=== PATIENT | male | born 1945 | race Two or more races ===

== ENCOUNTER → 2016-09-06 | Outpatient (CLI) | payer OTHER ==
[~2016-09-06] MED LIST: CYCL1TAB18 PO; FLUR15CA PO; HYDR-531 PO; IBU800T PO; OMEP20CA5 PO; SILD100T57 PO; WARF5TAB71 PO
== END | disposition home or self-care (01) ==
LOC: LAB 07:49
PROVIDERS: ATTEND Internal Medicine
DX: Z98.890 Other specified postprocedural states (principal)
CPT/HCPCS: 36415; 82565; 84520

== ENCOUNTER → 2016-10-19 | Outpatient (CLI) | payer OTHER ==
[2016-10-19 10:36] LABS: Albumin 4.1 g/dL (3.4-5.0); BUN/Creatinine Ratio 16.2; Basophils # (auto) 0.1 uL; Basophils % (auto) 1.2 % (0.0-2.0); Bilirubin, Direct 0.2 mg/dL (0-0.2); Bilirubin, Total 0.9 mg/dL (0.2-1.0); Calcium 9.2 mg/dL (8.5-10.1); Eosinophils # (auto) 0.2 uL; Eosinophils % (auto) 3.2 % (0.0-7.0); Hematocrit 48.4 % (41.0-53.0); Hemoglobin 16.1 g/dL (13.5-17.5); Lymphocytes # (auto) 1.2 uL; Lymphocytes % (auto) 21.6 % (10.0-50.0); Mean Corpuscular Hemoglobin 30.5 pg (28.0-32.0); Mean Corpuscular Hgb Conc. 33.3 g/dL (32.0-36.0); Mean Corpuscular Volume 91.6 fL (80.0-100.0); Mean Platelet Volume 10.3 fL (7.4-10.4); Monocytes # (auto) 0.5 uL; Monocytes % (auto) 8.7 % (0.0-12.0); Neutrophils # (auto) 3.5 uL; Neutrophils % (auto) 65.3 % (37.0-80.0); Platelet Count (auto) 191 10^3/uL (140-450); Potassium 4.7 mmol/L (3.5-5.1); Red Cell Distribution Width 14.5 % (11.6-16.0); White Blood Cell 5.4 10^3/uL (4.4-10.8)
[2016-10-19 10:42] LABS: Urine Bilirubin Negative (Negative); Urine Blood Negative /uL (Negative); Urine Color Yellow (Yellow); Urine Glucose Normal (Normal); Urine Ketone Negative (Negative); Urine Nitrite Negative (Negative); Urine Urobilinogen Normal (Negative); Urine pH 5.5 (5.0-8.0)
== END | disposition home or self-care (01) ==
LOC: LAB 09:57
PROVIDERS: ATTEND Internal Medicine Cardiovascular Disease
DX: D64.9 Anemia, unspecified (principal); I10 Essential (primary) hypertension; E78.00 Pure hypercholesterolemia, unspecified; E03.9 Hypothyroidism, unspecified; E55.9 Vitamin D deficiency, unspecified; R53.81 Other malaise; K74.1 Hepatic sclerosis; E11.00 Type 2 diabetes mellitus with hyperosmolarity without nonketotic hyperglycemic-hyperosmolar coma (NKHHC)
CPT/HCPCS: 36415; 80048; 80061; 80076; 81003; 82306; 83036; 84153; 84403; 84443; 85025

== ENCOUNTER → 2016-11-13 | Outpatient (CLI) | payer OTHER | END | disposition home or self-care (01) | LOC: Rad HDHVI 14:21 | PROVIDERS: ATTEND Internal Medicine Cardiovascular Disease | DX: Z01.810 Encounter for preprocedural cardiovascular examination (principal) | CPT/HCPCS: 93306 ==

== ENCOUNTER → 2016-12-17 | Outpatient (CLI) | payer OTHER ==
[~2016-12-17] VITALS: Ht 170.2 cm; Wt 86.6 kg
[~2016-12-17] MED LIST changes: +ADENOSINE 73 MG in GIVE UN-DILUTED 0 ML IV ONE; +ADENOSINE 90 MG/30 ML INJ IV ONE; -IBU800T PO; +IBUP800T24 PO; -OMEP20CA5 PO; +OMEP20CA74 PO
== END | disposition home or self-care (01) ==
LOC: Rad HDHVI 13:45
PROVIDERS: ATTEND Internal Medicine Cardiovascular Disease
DX: Z01.818 Encounter for other preprocedural examination (principal); I10 Essential (primary) hypertension; E78.00 Pure hypercholesterolemia, unspecified; Z82.49 Family history of ischemic heart disease and other diseases of the circulatory system
CPT/HCPCS: 78452; 93005; 96374; 96375; A9500; J0153

== ENCOUNTER 2017-02-20 06:08 | Day surgery (SDC) | payer OTHER ==
[2017-02-18 16:29] LABS: Basophils # (auto) 0.1 uL; Basophils % (auto) 0.9 % (0.0-2.0); CONDITION Y; Eosinophils # (auto) 0.2 uL; Eosinophils % (auto) 2.5 % (0.0-7.0); Hematocrit 44.5 % (41.0-53.0); Hemoglobin 15.2 g/dL (13.5-17.5); Lymphocytes # (auto) 1.3 uL; Lymphocytes % (auto) 19.5 % (10.0-50.0); Mean Corpuscular Hemoglobin 31.7 pg (28.0-32.0); Mean Corpuscular Hgb Conc. 34.2 g/dL (32.0-36.0); Mean Corpuscular Volume 92.9 fL (80.0-100.0); Mean Platelet Volume 10.6 fL (7.4-10.4); Monocytes # (auto) 0.6 uL; Monocytes % (auto) 8.7 % (0.0-12.0); Neutrophils # (auto) 4.5 uL; Neutrophils % (auto) 68.4 % (37.0-80.0); Platelet Count (auto) 161 10^3/uL (140-450); Red Cell Distribution Width 13.8 % (11.6-16.0); White Blood Cell 6.5 10^3/uL (4.4-10.8)
[2017-02-18 16:31] LABS: Urine Bilirubin Negative (Negative); Urine Blood Negative /uL (Negative); Urine Color Yellow (Yellow); Urine Glucose Normal (Normal); Urine Ketone Negative (Negative); Urine Nitrite Negative (Negative); Urine RBC 1 /hpf (0 - 3); Urine Squamous Epithelial Cell FEW /hpf (<5); Urine Urobilinogen Normal (Negative); Urine pH 5.5 (5.0-8.0)
[2017-02-18 16:35] LABS: Albumin 3.7 g/dL (3.4-5.0); BUN/Creatinine Ratio 12.6; Bilirubin, Total 0.6 mg/dL (0.2-1.0); Calcium 8.4 mg/dL (8.5-10.1); Potassium 3.6 mmol/L (3.5-5.1); Total Protein 7.3 g/dL (6.4-8.2)
[2017-02-18 16:36] LABS: INR 0.98 (0.9-1.15); Partial Thromboplastin Time 28.9 sec (22.64-33.71); Prothrombin Time 10.7 sec (9.37-12.3)
[~2017-02-20] VITALS: Ht 170.2 cm; Wt 88.9 kg
[~2017-02-20 06:08] MED LIST changes: -ADENOSINE 73 MG in GIVE UN-DILUTED 0 ML IV ONE; -ADENOSINE 90 MG/30 ML INJ IV ONE; -CYCL1TAB18 PO; -SILD100T57 PO; -WARF5TAB71 PO
[2017-02-20] MEDS ORDERED: ceFOXitin 2GM/100ML D5W 100 ML IV ONE (06:44)
[2017-02-20] MEDS ORDERED: HEPARIN SODIUM (PORCINE) 5000 UNITS/ML 1ML VIAL ONE (06:45)
[2017-02-20] MEDS ORDERED: fentaNYL CITRATE 100 MCG/2 ML VL ONE (07:30)
[2017-02-20] MEDS ORDERED: PROPOFOL 10 MG/ML 20 ML IV ONE (07:30)
[2017-02-20] MEDS ORDERED: LIDOCAINE W/ EPINEPHRINE 1 % INJ 30ML ONE (07:50)
[2017-02-20] MEDS ORDERED: LIDOCAINE 1% HCL (LOCAL ANESTH.) INJ 20ML MDV ONE (07:50)
[2017-02-20] MEDS ORDERED: BUPIVACAINE HCL 50 ML ONE (07:50)
[2017-02-20] MEDS ORDERED: ePHEDrine SULFATE 50 MG/ML AMP IV PRN (09:15)
[2017-02-20] MEDS ORDERED: ONDANSETRON HCL 4 MG/2 ML VIAL IV ONE (09:15)
[2017-02-20] MEDS ORDERED: hydrALAZINE HCL 20 MG/ML VL IV PRN (09:15)
[2017-02-20] MEDS: HYDROmorphone HCL 2 MG/ML VL IV PRN ×2 (09:30→09:40)
[2017-02-20 10:10] VITALS: BP 114/68
== END 2017-02-20 10:15 | disposition home or self-care (01) ==
LOC: SUR 06:08
DX: K42.9 Umbilical hernia without obstruction or gangrene (principal); Z90.49 Acquired absence of other specified parts of digestive tract; K66.0 Peritoneal adhesions (postprocedural) (postinfection)
CPT/HCPCS: 36415; 44970; 49652; 80053; 81001; 85025; 85610; 85730; 86850; 86900; 86901; J0694; J1170; J1644; J2001; J2704; J3010; J3490; J7030

== ENCOUNTER → 2017-05-27 | Outpatient (CLI) | payer OTHER ==
[2017-05-27 09:28] LABS: Basophils # (auto) 0.1 uL; Basophils % (auto) 2.5 % (0.0-2.0); Eosinophils # (auto) 0.2 uL; Eosinophils % (auto) 3.3 % (0.0-7.0); Hematocrit 44.5 % (41.0-53.0); Hemoglobin 15.4 g/dL (13.5-17.5); Lymphocytes # (auto) 1.3 uL; Lymphocytes % (auto) 27.1 % (10.0-50.0); Mean Corpuscular Hemoglobin 32.4 pg (28.0-32.0); Mean Corpuscular Hgb Conc. 34.7 g/dL (32.0-36.0); Mean Corpuscular Volume 93.5 fL (80.0-100.0); Mean Platelet Volume 9.6 fL (6.9-10.8); Monocytes # (auto) 0.4 uL; Monocytes % (auto) 9.4 % (0.0-12.0); Neutrophils # (auto) 2.7 uL; Neutrophils % (auto) 57.7 % (37.0-80.0); Nucleated Red Blood Cells % 0.1 %; Platelet Count (auto) 139 10^3/uL (140-450); Red Cell Distribution Width 13.2 % (11.8-14.3); White Blood Cell 4.8 10^3/uL (4.4-10.8)
[2017-05-27 09:38] LABS: INR 1.02 (0.9-1.15); Prothrombin Time 11.1 sec (9.37-12.3)
[2017-05-27 09:56] LABS: Albumin 3.8 g/dL (3.4-5.0); BUN/Creatinine Ratio 16.2; Bilirubin, Total 0.8 mg/dL (0.2-1.0); Calcium 8.2 mg/dL (8.5-10.1); Potassium 3.8 mmol/L (3.5-5.1); Total Protein 7.4 g/dL (6.4-8.2)
== END | disposition home or self-care (01) ==
LOC: LAB 09:00
DX: D49.0 Neoplasm of unspecified behavior of digestive system (principal); Z79.01 Long term (current) use of anticoagulants
CPT/HCPCS: 36415; 80053; 85025; 85610

== ENCOUNTER → 2017-08-30 | Outpatient (CLI) | payer OTHER ==
[2017-08-30 10:03] LABS: Basophils # (auto) 0.1 uL; Basophils % (auto) 2.5 % (0.0-2.0); Eosinophils # (auto) 0.4 uL; Eosinophils % (auto) 7.8 % (0.0-7.0); Hematocrit 40.8 % (41.0-53.0); Hemoglobin 13.7 g/dL (13.5-17.5); Lymphocytes # (auto) 1.3 uL; Lymphocytes % (auto) 26.3 % (10.0-50.0); Mean Corpuscular Hemoglobin 31.1 pg (28.0-32.0); Mean Corpuscular Hgb Conc. 33.6 g/dL (32.0-36.0); Mean Corpuscular Volume 92.6 fL (80.0-100.0); Monocytes # (auto) 0.6 uL; Monocytes % (auto) 11.1 % (0.0-12.0); Neutrophils # (auto) 2.6 uL; Neutrophils % (auto) 52.3 % (37.0-80.0); Nucleated Red Blood Cells % 0.3 %; Platelet Count (auto) 142 10^3/uL (140-450); Red Cell Distribution Width 15.9 % (11.8-14.3)
[2017-08-30 14:17] LABS: Potassium 3.9 mmol/L (3.5-5.1)
[2017-08-30 14:18] LABS: BUN/Creatinine Ratio 15.5
[2017-08-30 14:19] LABS: Albumin 3.6 g/dL (3.4-5.0); Bilirubin, Total 0.4 mg/dL (0.2-1.0); Calcium 8.9 mg/dL (8.5-10.1); Total Protein 7.5 g/dL (6.4-8.2)
== END | disposition home or self-care (01) ==
LOC: LAB 09:06
PROVIDERS: ATTEND Physician Assistant
DX: I10 Essential (primary) hypertension (principal); E78.4 Other hyperlipidemia; J43.9 Emphysema, unspecified; N21.9 Calculus of lower urinary tract, unspecified; Z86.718 Personal history of other venous thrombosis and embolism
CPT/HCPCS: 36415; 80053; 80061; 84403; 85025

== ENCOUNTER → 2017-09-16 | Outpatient (CLI) | payer OTHER | END | disposition home or self-care (01) | LOC: LAB 09:24 | PROVIDERS: ATTEND Physician Assistant | DX: E34.9 Endocrine disorder, unspecified (principal); N50.9 Disorder of male genital organs, unspecified | CPT/HCPCS: 36415; 84403 ==

== ENCOUNTER → 2017-10-18 | Outpatient (CLI) | payer OTHER ==
[2017-10-18 10:04] LABS: Albumin 3.6 g/dL (3.4-5.0); BUN/Creatinine Ratio 16.1; Bilirubin, Total 0.5 mg/dL (0.2-1.0); Calcium 8.3 mg/dL (8.5-10.1); Potassium 3.9 mmol/L (3.5-5.1); Total Protein 7.2 g/dL (6.4-8.2)
== END | disposition home or self-care (01) ==
LOC: LAB 08:55
PROVIDERS: ATTEND Physician Assistant
DX: E34.9 Endocrine disorder, unspecified (principal); E78.4 Other hyperlipidemia; I10 Essential (primary) hypertension
CPT/HCPCS: 36415; 80053; 80061

== ENCOUNTER → 2018-02-12 | Outpatient (CLI) | payer OTHER | END | disposition home or self-care (01) | LOC: LAB 07:43 | PROVIDERS: ATTEND Physician Assistant | DX: Z01.818 Encounter for other preprocedural examination (principal); I10 Essential (primary) hypertension; E03.9 Hypothyroidism, unspecified; K21.9 Gastro-esophageal reflux disease without esophagitis | CPT/HCPCS: 36415; 82565; 84520 ==

== ENCOUNTER 2018-06-23 11:01 | Emergency (ER) | payer OTHER ==
[~2018-06-23] VITALS: Ht 172.7 cm; Wt 88.0 kg
[2018-06-23 11:42] VITALS: BP 138/90
[2018-06-23] MEDS ORDERED: METHOCARBAMOL 500 MG TAB PO ONE (12:15)
[2018-06-23] MEDS ORDERED: methylPREDNISolone SOD SUCC 125 MG/2 ML VL IM ONE (12:15)
== END 2018-06-23 13:01 | disposition home or self-care (01) ==
LOC: ER 11:01
DX: S16.1XXA Strain of muscle, fascia and tendon at neck level, initial encounter (principal); X58.XXXA Exposure to other specified factors, initial encounter; Y93.89 Activity, other specified; Y99.8 Other external cause status; Y92.89 Other specified places as the place of occurrence of the external cause
CPT/HCPCS: 72040; 96372; 99283; J2930

== ENCOUNTER → 2018-09-11 | Outpatient (CLI) | payer OTHER | END | disposition home or self-care (01) | LOC: XYW 09:07 | PROVIDERS: ATTEND Orthopaedic Surgery Adult Reconstructive Orthopaedic Surgery | DX: Z01.818 Encounter for other preprocedural examination (principal); I34.0 Nonrheumatic mitral (valve) insufficiency; G56.02 Carpal tunnel syndrome, left upper limb | CPT/HCPCS: 93306 ==

== ENCOUNTER → 2018-09-18 | Outpatient (CLI) | payer OTHER | END | disposition home or self-care (01) | LOC: LAB 08:45 | PROVIDERS: ATTEND Physician Assistant | DX: C18.1 Malignant neoplasm of appendix (principal) | CPT/HCPCS: 36415; 82565; 84520 ==

== ENCOUNTER → 2018-10-13 | Day surgery (SDC) | payer OTHER ==
[2018-10-06 09:42] LABS: Basophils # (auto) 0.1 uL; Basophils % (auto) 2.5 % (0.0-2.0); Eosinophils # (auto) 0.1 uL; Hematocrit 47.4 % (41.0-53.0); Hemoglobin 16.3 g/dL (13.5-17.5); Lymphocytes % (auto) 23.4 % (10.0-50.0); Mean Corpuscular Hemoglobin 32.2 pg (28.0-32.0); Mean Corpuscular Hgb Conc. 34.5 g/dL (32.0-36.0); Mean Corpuscular Volume 93.4 fL (80.0-100.0); Monocytes # (auto) 0.4 uL; Neutrophils # (auto) 2.6 uL; Neutrophils % (auto) 61.1 % (37.0-80.0); Nucleated Red Blood Cells % 0.2 %; Platelet Count (auto) 130 10^3/uL (140-450); Red Blood Cells 5.07 10^6/uL (4.5-5.90); Red Cell Distribution Width 13.9 % (11.8-14.3); White Blood Cell 4.3 10^3/uL (4.4-10.8)
[2018-10-06 09:46] LABS: Urine Bacteria NONE SEEN /hpf (None Seen); Urine Blood Negative /uL (Negative); Urine Specific Gravity 1.026 (1.001-1.035); Urine WBC <1 /hpf (0 - 3)
[2018-10-06 10:00] LABS: INR 1.03 (0.9-1.15)
[2018-10-06 10:03] LABS: Albumin 3.6 g/dL (3.4-5.0); BUN/Creatinine Ratio 13.3; Calcium 8.1 mg/dL (8.5-10.1); Potassium 3.8 mmol/L (3.5-5.1)
[2018-10-06 10:08] LABS: Bilirubin, Total 0.9 mg/dL (0.2-1.0); Total Protein 7.1 g/dL (6.4-8.2)
[~2018-10-13] VITALS: Ht 170.2 cm; Wt 86.2 kg
[~2018-10-13] MED LIST changes: +ASPI81TA27 PO; +ATOR10TA52 PO; +BUPIVACAINE 0.25% INJ 50ML VIAL ONE; +DICL1.3D21 TOP; +DexAMETHasone SOD PHOS 10MG/1ML VIAL INJ ONE; +HYDROmorphone HCL 2 MG/ML VL IV PRN; +KETOROLAC TROMETH 30 MG/ML 1ML VIAL IV ONE; +KETOROLAC TROMETH 30 MG/ML 1ML VIAL ONE; +LABETALOL HCL 5 MG/ML 4ML SYRINGE IV PRN; +LIDOCAINE 1% HCL (LOCAL ANESTH.) INJ 20ML MDV ONE; +MEPERIDINE HCL (50 MG/ML) 1 ML VIAL ONE; +MIDAZOLAM HCL 1MG/1ML-2 ML VIAL IV PRN; +MIDAZOLAM HCL 1MG/1ML-2 ML VIAL ONE; +MORPHINE SULFATE 4 MG/ML SYR/VIAL IV ONE; +ONDANSETRON HCL 4 MG/2 ML VIAL IV ONE; +PROPOFOL 10 MG/ML 20 ML IV ONE; +TEST1INJ15 IM; +ceFAZolin 1GM/50ML 100 ML IV ONE; +ePHEDrine SULFATE 50 MG/ML AMP IV PRN; +fentaNYL CITRATE 100 MCG/2 ML VL ONE
[2018-10-13 09:44] VITALS: BP 102/67
== END | disposition home or self-care (01) ==
LOC: SUR 06:14
PROVIDERS: ATTEND Orthopaedic Surgery Adult Reconstructive Orthopaedic Surgery
DX: G56.02 Carpal tunnel syndrome, left upper limb (principal); G56.22 Lesion of ulnar nerve, left upper limb; Z79.899 Other long term (current) drug therapy; Z79.82 Long term (current) use of aspirin; K21.9 Gastro-esophageal reflux disease without esophagitis; G89.29 Other chronic pain; E66.9 Obesity, unspecified; Z68.30 Body mass index [BMI] 30.0-30.9, adult
CPT/HCPCS: 29848; 36415; 64718; 80053; 81001; 85025; 85610; 85730; J0690; J1100; J1885; J2001; J2175; J2250; J2704; J3010; J3490

== ENCOUNTER → 2018-10-28 | Outpatient (CLI) | payer OTHER ==
[~2018-10-28] MED LIST changes: -BUPIVACAINE 0.25% INJ 50ML VIAL ONE; -DexAMETHasone SOD PHOS 10MG/1ML VIAL INJ ONE; -HYDROmorphone HCL 2 MG/ML VL IV PRN; -KETOROLAC TROMETH 30 MG/ML 1ML VIAL IV ONE; -KETOROLAC TROMETH 30 MG/ML 1ML VIAL ONE; -LABETALOL HCL 5 MG/ML 4ML SYRINGE IV PRN; -LIDOCAINE 1% HCL (LOCAL ANESTH.) INJ 20ML MDV ONE; -MEPERIDINE HCL (50 MG/ML) 1 ML VIAL ONE; -MIDAZOLAM HCL 1MG/1ML-2 ML VIAL IV PRN; -MIDAZOLAM HCL 1MG/1ML-2 ML VIAL ONE; -MORPHINE SULFATE 4 MG/ML SYR/VIAL IV ONE; -ONDANSETRON HCL 4 MG/2 ML VIAL IV ONE; -PROPOFOL 10 MG/ML 20 ML IV ONE; -ceFAZolin 1GM/50ML 100 ML IV ONE; -ePHEDrine SULFATE 50 MG/ML AMP IV PRN; -fentaNYL CITRATE 100 MCG/2 ML VL ONE
[2018-10-28 09:30] LABS: Basophils # (auto) 0.1 uL; Basophils % (auto) 1.4 % (0.0-2.0); Eosinophils # (auto) 0.2 uL; Hematocrit 49.1 % (41.0-53.0); Hemoglobin 16.7 g/dL (13.5-17.5); Lymphocytes # (auto) 0.6 uL; Lymphocytes % (auto) 15.4 % (10.0-50.0); Mean Corpuscular Hemoglobin 31.8 pg (28.0-32.0); Mean Corpuscular Hgb Conc. 34.1 g/dL (32.0-36.0); Mean Corpuscular Volume 93.2 fL (80.0-100.0); Monocytes # (auto) 0.5 uL; Monocytes % (auto) 12.6 % (0.0-12.0); Neutrophils # (auto) 2.6 uL; Neutrophils % (auto) 66.6 % (37.0-80.0); Nucleated Red Blood Cells % 0.1 %; Platelet Count (auto) 108 10^3/uL (140-450); Red Blood Cells 5.26 10^6/uL (4.5-5.90); Red Cell Distribution Width 13.7 % (11.8-14.3); White Blood Cell 3.9 10^3/uL (4.4-10.8)
[2018-10-28 09:46] LABS: Potassium 3.7 mmol/L (3.5-5.1)
[2018-10-28 09:58] LABS: Albumin 3.7 g/dL (3.4-5.0); BUN/Creatinine Ratio 13.3; Bilirubin, Total 1.3 mg/dL (0.2-1.0); Calcium 8.3 mg/dL (8.5-10.1); Total Protein 7.1 g/dL (6.4-8.2)
== END | disposition home or self-care (01) ==
LOC: LAB 08:19
PROVIDERS: ATTEND Physician Assistant
DX: Z12.5 Encounter for screening for malignant neoplasm of prostate (principal); J44.9 Chronic obstructive pulmonary disease, unspecified; I10 Essential (primary) hypertension; E78.49 Other hyperlipidemia; E34.9 Endocrine disorder, unspecified
CPT/HCPCS: 36415; 80053; 80061; 84153; 84403; 85025

== ENCOUNTER → 2019-02-12 | Outpatient (CLI) | payer OTHER ==
[~2019-02-12] MED LIST changes: +ASPI-404 PO; -ASPI81TA27 PO
[2019-02-12 11:39] LABS: Alcohol, Urine < 3.0 mg/dL (0-5); Amphetamine Screen, Urine NEGATIVE (NEGATIVE); Barbiturate Scree,Urine NEGATIVE (NEGATIVE); Benzodiazephine Screen, Urine NEGATIVE (NEGATIVE); Opiate Scree,Urine NEGATIVE (NEGATIVE)
[2019-02-12 11:46] LABS: Cannabinoid Screen, Urine NEGATIVE (NEGATIVE); Cocaine Screen, Urine NEGATIVE (NEGATIVE); Phencyclidine Screen, Urine NEGATIVE (NEGATIVE)
== END | disposition home or self-care (01) ==
LOC: LAB 11:10
PROVIDERS: ATTEND Physician Assistant
DX: Z02.89 Encounter for other administrative examinations (principal); Z79.818 Long term (current) use of other agents affecting estrogen receptors and estrogen levels
CPT/HCPCS: 80307

== ENCOUNTER → 2019-03-31 | Outpatient (CLI) | payer OTHER ==
[2019-03-31 11:34] LABS: Alcohol, Urine < 3.0 mg/dL (0-5); Amphetamine Screen, Urine NEGATIVE (NEGATIVE); Barbiturate Scree,Urine NEGATIVE (NEGATIVE); Benzodiazephine Screen, Urine NEGATIVE (NEGATIVE); Cannabinoid Screen, Urine NEGATIVE (NEGATIVE); Cocaine Screen, Urine NEGATIVE (NEGATIVE); Opiate Scree,Urine POSITIVE (NEGATIVE); Phencyclidine Screen, Urine NEGATIVE (NEGATIVE)
== END | disposition home or self-care (01) ==
LOC: LAB 09:42
PROVIDERS: ATTEND Physician Assistant
DX: Z79.891 Long term (current) use of opiate analgesic (principal)
CPT/HCPCS: 80307

== ENCOUNTER → 2019-08-10 | Outpatient (CLI) | payer OTHER ==
[2019-08-10 07:47] LABS: Basophils # (auto) 0.1 uL; Basophils % (auto) 1.8 % (0.0-2.0); Eosinophils # (auto) 0.3 uL; Eosinophils % (auto) 6.4 % (0.0-7.0); Hematocrit 42.2 % (41.0-53.0); Hemoglobin 14.9 g/dL (13.5-17.5); Lymphocytes # (auto) 1.1 uL; Lymphocytes % (auto) 23.1 % (10.0-50.0); Mean Corpuscular Hemoglobin 32.7 pg (28.0-32.0); Mean Corpuscular Hgb Conc. 35.4 g/dL (32.0-36.0); Mean Corpuscular Volume 92.4 fL (80.0-100.0); Monocytes # (auto) 0.5 uL; Monocytes % (auto) 9.8 % (0.0-12.0); Neutrophils # (auto) 2.9 uL; Neutrophils % (auto) 58.9 % (37.0-80.0); Platelet Count (auto) 127 10^3/uL (140-450); Red Blood Cells 4.56 10^6/uL (4.5-5.90); Red Cell Distribution Width 13.2 % (11.8-14.3); White Blood Cell 4.9 10^3/uL (4.4-10.8)
[2019-08-10 08:21] LABS: Albumin 3.7 g/dL (3.4-5.0); Calcium 8.8 mg/dL (8.5-10.1); Magnesium 2.2 mg/dL (1.6-2.6); Potassium 3.9 mmol/L (3.5-5.1)
[2019-08-10 08:27] LABS: BUN/Creatinine Ratio 17.6; Bilirubin, Total 0.9 mg/dL (0.2-1.0); Total Protein 6.9 g/dL (6.4-8.2)
== END | disposition home or self-care (01) ==
LOC: LAB 07:04
PROVIDERS: ATTEND Physician Assistant
DX: Z12.5 Encounter for screening for malignant neoplasm of prostate (principal); E78.49 Other hyperlipidemia; I45.19 Other right bundle-branch block; I10 Essential (primary) hypertension; G47.33 Obstructive sleep apnea (adult) (pediatric); E34.9 Endocrine disorder, unspecified; C78.6 Secondary malignant neoplasm of retroperitoneum and peritoneum
CPT/HCPCS: 36415; 80053; 80061; 83735; 84153; 84403; 85025

== ENCOUNTER → 2019-09-10 | Emergency (ER) | payer OTHER ==
[~2019-09-10] VITALS: Ht 172.7 cm; Wt 88.5 kg
[~2019-09-10] MED LIST changes: +HYDROmorphone HCL 2 MG/ML VL IV ONE; +HYDROmorphone HCL 2 MG/ML VL IV PRN; +IOHEXOL 300 MG/ML 100ML BOTTLE IJ ONE; +MORPHINE SULFATE 4 MG/ML SYR/VIAL IV ONE; +MORPHINE SULFATE 4 MG/ML SYR/VIAL ONE; +ONDANSETRON HCL 4 MG/2 ML VIAL IV ONE; +ONDANSETRON HCL 4 MG/2 ML VIAL ONE; +SODIUM CHLORIDE 0.9% 1,000 ML IV ONE; +cefTRIAXone 1GM/50ML D5W 50 ML IV ONE; +metroNIDAZOLE 500MG/100ML 100 ML IV ONE
[2019-09-10 11:28] LABS: Basophils # (auto) 0.1 uL; Basophils % (auto) 1.5 % (0.0-2.0); Eosinophils # (auto) 0.1 uL; Eosinophils % (auto) 1.8 % (0.0-7.0); Hematocrit 48.6 % (41.0-53.0); Hemoglobin 16.5 g/dL (13.5-17.5); Lymphocytes % (auto) 17.5 % (10.0-50.0); Mean Corpuscular Hemoglobin 32.4 pg (28.0-32.0); Mean Corpuscular Volume 95.2 fL (80.0-100.0); Monocytes # (auto) 0.2 uL; Monocytes % (auto) 3.8 % (0.0-12.0); Neutrophils # (auto) 4.3 uL; Neutrophils % (auto) 75.4 % (37.0-80.0); Nucleated Red Blood Cells % 0.9 %; Platelet Count (auto) 128 10^3/uL (140-450); White Blood Cell 5.8 10^3/uL (4.4-10.8)
[2019-09-10 11:41] LABS: Calcium 8.4 mg/dL (8.5-10.1); Chloride 112 mmol/L (98-107); Potassium 3.9 mmol/L (3.5-5.1); Sodium 141 mmol/L (136-145)
[2019-09-10 11:42] LABS: INR 1.09 (0.9-1.15); Partial Thromboplastin Time 24.8 sec (23.64-32.05)
[2019-09-10 11:50] LABS: Alanine Aminotransferase 42 U/L (16-61); Albumin 3.6 g/dL (3.4-5.0); Alkaline Phosphatase 48 U/L (45-117); Amylase 100 U/L (25-115); Anion Gap 4 (5-15); Aspartate Aminotransferase 31 U/L (15-37); BUN/Creatinine Ratio 20.2; Bilirubin, Total 0.9 mg/dL (0.2-1.0); Blood Urea Nitrogen 20 mg/dL (7-18); Carbon Dioxide 25 mmol/L (21-32); GFR African American 95 mL/min; GFR Non-African American 79 mL/min; Glucose 136 mg/dL (74-106); Lipase 215 U/L (73-393); Total Protein 7.1 g/dL (6.4-8.2)
[2019-09-10 12:07] LABS: Urine WBC None Seen /hpf (0 - 3)
[2019-09-10 12:17] LABS: Urine Bacteria NONE SEEN /hpf (None Seen); Urine Blood Negative /uL (Negative); Urine Specific Gravity 1.026 (1.001-1.035)
[2019-09-10 18:45] VITALS: BP 101/84
== END | disposition short-term general hospital (02) ==
LOC: EDUNIT# 10:02 → ER 10:12 → EDBD 10:12
DX: K52.9 Noninfective gastroenteritis and colitis, unspecified (principal); K57.90 Diverticulosis of intestine, part unspecified, without perforation or abscess without bleeding; K80.20 Calculus of gallbladder without cholecystitis without obstruction; K21.9 Gastro-esophageal reflux disease without esophagitis; E78.5 Hyperlipidemia, unspecified; I10 Essential (primary) hypertension; Z79.899 Other long term (current) drug therapy
CPT/HCPCS: 36415; 74176; 74177; 80053; 81001; 82150; 83605; 83690; 84484; 85025; 85610; 85730; 96361; 96365; 96367; 96375; 96376; 99285; J0696; J1170; J2270; J2405; J3490; Q9967

== ENCOUNTER → 2020-02-15 | Outpatient (CLI) | payer OTHER ==
[~2020-02-15] MED LIST changes: -ASPI-404 PO; +ASPI-543 PO; -DICL1.3D21 TOP; -HYDROmorphone HCL 2 MG/ML VL IV ONE; -HYDROmorphone HCL 2 MG/ML VL IV PRN; -IOHEXOL 300 MG/ML 100ML BOTTLE IJ ONE; -MORPHINE SULFATE 4 MG/ML SYR/VIAL IV ONE; -MORPHINE SULFATE 4 MG/ML SYR/VIAL ONE; -ONDANSETRON HCL 4 MG/2 ML VIAL IV ONE; -ONDANSETRON HCL 4 MG/2 ML VIAL ONE; -SODIUM CHLORIDE 0.9% 1,000 ML IV ONE; +[UNRECOGNIZED DRUG - CODE] TOP; -cefTRIAXone 1GM/50ML D5W 50 ML IV ONE; -metroNIDAZOLE 500MG/100ML 100 ML IV ONE
== END | disposition home or self-care (01) ==
LOC: LAB 12:32
PROVIDERS: ATTEND Physician Assistant
DX: Z12.11 Encounter for screening for malignant neoplasm of colon (principal); Z00.00 Encounter for general adult medical examination without abnormal findings
CPT/HCPCS: 82274

== ENCOUNTER → 2020-09-20 | Outpatient (CLI) | payer MEDICARE ==
[~2020-09-20] MED LIST changes: +DICL1.3P TOP; -FLUR15CA PO; +FLUR15CA13 PO; -IBUP800T24 PO; +IBUP800T26 PO; -[UNRECOGNIZED DRUG - CODE] TOP
== END | disposition home or self-care (01) ==
LOC: LAB 07:21
PROVIDERS: ATTEND Physician Assistant
DX: C76.2 Malignant neoplasm of abdomen (principal); K56.609 Unspecified intestinal obstruction, unspecified as to partial versus complete obstruction
CPT/HCPCS: 36415; 82565; 84520

== ENCOUNTER → 2024-09-08 | Outpatient (CLI) | payer MEDICARE ==
[~2024-09-08] MED LIST changes: +IBUP-1455 PO; -IBUP800T26 PO
== END | disposition home or self-care (01) ==
LOC: LAB 15:58
PROVIDERS: ATTEND Nurse Practitioner Family
DX: L03.90 Cellulitis, unspecified (principal); M10.9 Gout, unspecified
CPT/HCPCS: 36415; 84550